=== PATIENT | male | born 1965 | race Caucasian/White ===

== ENCOUNTER → 2020-01-29 14:34 | Outpatient (CLI) | payer BC, SELFPAY ==
--- NOTE | ~2020-01-29 | MR_ITS ---
EXAMINATION: MR shoulder RT wo con DATE: 01/29/2020 15:29 INDICATION: Right shoulder dislocation presenting with pain and limited range of motion. TECHNIQUE: Magnetic resonance imaging (MRI) of the right shoulder was performed without intravenous c ontrast. Sequences included axial PD-weighted FS FSE, coronal oblique PD-weighted FS FSE, coronal obl ique T2-weighted FS FSE, sagittal PD-weighted FS FSE, and sagittal T1-weighted SE. COMPARISON: None. FINDINGS: Coracoacromial arch: The acromion undersurface is curved in morphology (type II). The coracoacromial ligament is normal. M oderate acromioclavicular osteoarthritis. Rotator cuff: Mild supraspinatus and infraspinatus tendinopathy without discrete tear. The subscapularis and teres minor tendons are normal. Normal rotator cuff muscle bulk and signal. Biceps tendon, glenoid labrum and glenohumeral cartilage: Long head of the biceps tendon is normal. Bankart fracture extending from the anterior to the inferio r glenoid. The fracture fragment which measures approximately 2.1 cm in anterosuperior to posterior i nferior length and 6 mm in orthogonal dimensions. There is up to 2 mm step-off at the articular bart x. There is a diffuse linear increased signal intensity tear of the superior, posterior and inferior glenoid labrum. There is an irregular contour to the anteroinferior labrum with thickening and increa sed signal of the adjacent periosteum. There appears to be loss of the articular cartilage along the anterior inferior fragment of the glenoid. Fluid: Moderate-sized glenohumeral joint effusion. There are irregular filling defects both at the axillary recess, the posterior recess of the deep subscapular recess of the joint space which could represent clot or loose chondral fragments. The amount of filling defects however appears to create exceed the potential amount of cartilage injury in this more likely to represent clot. Small amount of fluid in the subacromial/subdeltoid bursa consistent with mild bursitis. Bones: Prominent marrow edema at the humeral head surrounding a Hill Sachs fracture trough at the posterior superior aspect of the humeral head. There is additional marrow edema in the glenoid surrounding the Bankart fracture. No pathologic marrow replacing process. IMPRESSION: 1. Injury pattern consistent with an anterior glenohumeral dislocation including a prominent Hill-Sac hs fracture deformity at the posterior superior femoral head and a mildly dysplastic breast Bankart f racture at the anterior to inferior glenoid with associated injury to the anterior labroligamentous c omplex. 2. More diffuse tear of the superior to posterior and inferior glenoid labrum. 3. Moderate-sized glenohumeral joint effusion with multiple internal filling defects which could repr esent clot and/or displaced chondral fragments. 4. Moderate acromioclavicular osteoarthritis. 5. Mild supraspinatus and infraspinatus tendinopathy without discrete tear. Reviewed, dictated and finalized at location [facility] IMPRESSION: 1. Injury pattern consistent with an anterior glenohumeral dislocation includin g a prominent Hill-Sachs fracture deformity at the posterior superior femoral h ead and a mildly dysplastic breast Bankart fracture at the anterior to inferior glenoid with associated injury to the anterior labroligamentous complex. 2. More diffuse tear of the superior to posterior and inferior glenoid labrum. 3. Moderate-sized glenohumeral joint effusion with multiple internal filling de fects which could represent clot and/or displaced chondral fragments. 4. Moderate acromioclavicular osteoarthritis. 5. Mild supraspinatus and infraspinatus tendinopathy without discrete tear.
== END ==
PROVIDERS: PCP Chiropractor
DX: S43.004D Unspecified dislocation of right shoulder joint, subsequent encounter (principal); X58.XXXD Exposure to other specified factors, subsequent encounter; Z87.39 Personal history of other diseases of the musculoskeletal system and connective tissue; M25.411 Effusion, right shoulder; M19.011 Primary osteoarthritis, right shoulder
CPT/HCPCS: 73221